=== PATIENT | female | born 1955 | race Caucasian/White ===

== ENCOUNTER 2022-04-03 06:25 | Day surgery (SDC) | payer OTHER ==
[~2022-04-03 06:25] MED LIST: Sodium Chloride 0.9% 10 ML Syringe FLUSH PRN; Sodium Chloride 0.9% 10 ML Syringe FLUSH SCH
[2022-04-03] MEDS ORDERED: Midazolam 1 MG/ML 2 ML SDV IV ONE (06:26)
[2022-04-03] MEDS ORDERED: fentaNYL 100 MCG/2 ML SDV IV ONE (06:26)
[2022-04-03] MEDS ORDERED: fentaNYL 100 MCG/2 ML SDV ONE (06:35)
[2022-04-03] MEDS ORDERED: Midazolam 1 MG/ML 2 ML SDV ONE (06:35)
[2022-04-03] MEDS: Dextrose 5%-0.45% NaCl 1,000 ML IV SCH (06:53)
[2022-04-03] MEDS: fentaNYL 100 MCG/2 ML SDV IV ONE ×2 (07:28→07:29)
[2022-04-03] MEDS: Midazolam 1 MG/ML 2 ML SDV IV ONE ×2 (07:29→07:30)
[2022-04-03 09:47] VITALS: BP 114/60; PULSE 72
== END 2022-04-03 09:47 | disposition home or self-care (01) ==
LOC: DL.ENDO 06:25
PROVIDERS: ATTEND Internal Medicine Gastroenterology
DX: K25.9 Gastric ulcer, unspecified as acute or chronic, without hemorrhage or perforation (principal); K44.9 Diaphragmatic hernia without obstruction or gangrene; D64.9 Anemia, unspecified; I10 Essential (primary) hypertension; E78.5 Hyperlipidemia, unspecified; E66.09 Other obesity due to excess calories; K58.9 Irritable bowel syndrome, unspecified; E04.9 Nontoxic goiter, unspecified; Z98.890 Other specified postprocedural states; Z68.25 Body mass index [BMI] 25.0-25.9, adult; Z68.38 Body mass index [BMI] 38.0-38.9, adult
CPT/HCPCS: 87077; J2250; J3010; J7042

== ENCOUNTER 2025-03-22 05:29 | Day surgery (SDC) | payer MEDICARE, OTHER ==
[2025-03-22] MEDS ORDERED: Dextrose 5%-0.45% NaCl 1,000 ML IV SCH (05:30)
[2025-03-22] MEDS: Lactated Ringers 1,000 ML IV SCH (06:08)
[2025-03-22] MEDS ORDERED: propofoL 1,000 MG/100 ML 100 ML ONE (06:09)
[2025-03-22 07:58] VITALS: BP 111/67; PULSE 92
== END 2025-03-22 08:11 | disposition home or self-care (01) ==
LOC: DL.ENDO 05:29
PROVIDERS: ATTEND Internal Medicine Gastroenterology
DX: Z12.11 Encounter for screening for malignant neoplasm of colon (principal); I10 Essential (primary) hypertension; K21.9 Gastro-esophageal reflux disease without esophagitis; E78.5 Hyperlipidemia, unspecified; E53.8 Deficiency of other specified B group vitamins; E83.42 Hypomagnesemia
CPT/HCPCS: G0121; J7120